=== PATIENT | female | born 1985 | race American Indian/Alaskan Native ===

== ENCOUNTER 2020-09-07 16:15 | Emergency (ER) | payer SELFPAY ==
[2020-09-07 16:27] VITALS: BP 152/83
[2020-09-07] MEDS ORDERED: IBUPROFEN 600 MG TAB PO ONE ×2 (18:01→18:02)
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
== END 2020-09-07 20:01 | disposition home or self-care (01) ==
LOC: ED 16:15
DX: S16.1XXA Strain of muscle, fascia and tendon at neck level, initial encounter (principal); S39.012A Strain of muscle, fascia and tendon of lower back, initial encounter; Z79.899 Other long term (current) drug therapy; V49.49XA Driver injured in collision with other motor vehicles in traffic accident, initial encounter; Y93.89 Activity, other specified; Y92.488 Other paved roadways as the place of occurrence of the external cause; Y99.8 Other external cause status
CPT/HCPCS: 72040; 72100; 99283

== ENCOUNTER 2020-09-12 08:32 | Emergency (ER) | payer SELFPAY ==
[2020-09-12 08:54] VITALS: BP 142/91
== END 2020-09-12 13:38 ==
LOC: ED 08:32
DX: M54.2 Cervicalgia (principal); Z53.21 Procedure and treatment not carried out due to patient leaving prior to being seen by health care provider

== ENCOUNTER 2021-07-05 16:26 | Emergency (ER) | payer SELFPAY ==
[2021-07-05] MEDS ORDERED: BUTALB/ACETAMINOPHEN/CAFFEINE TAB PO ONE (17:58)
[2021-07-05] MEDS ORDERED: cloNIDine 0.2 MG TAB PO ONE (17:58)
--- NOTE | 2021-07-05 18:14 | Emergency Department Report ---
ED General Adult HPI - General Chief complaint: High BP Stated complaint: HEAD HURTING, ELEVATED BP Time Seen by Provider: 07/05/21 17:53 Source: patient Mode of arrival: Ambulatory Limitations: No Limitations - History of Present Illness Initial comments: Patient is a 35-year-old female presents emergency room complaints of a headache and elevated blood pressure that exacerbated today. She states that the headache feels like a pressure. Patient was evaluated in the emergency department on 07/03/2021 and was found to have elevated blood pressure at that time and was advised to follow-up outpatient with primary care but not yet started on any antihypertensives. She states that she did not follow-up with her primary care doctor. She states her headache had resolved but then returned again today. She denies any vision changes, numbness, weakness, speech disturbance, gait disturbance, chest pain, shortness of breath, leg swelling, calf pain, cough. Patient had CT head on 07/03/2021 which was within normal limits, labs are stable, no kidney dysfunction, EKG was stable. She has a past medical history of preeclampsia during . She has not seen a primary care doctor in over a year. She has an allergy to penicillin. Last menstrual cycle 06/23/2021. she is a tobacco user. - Related Data Previous Rx's Medication Instructions Recorded Last Taken Type Benzonatate [Tessalon Perles] 100 mg PO Q8HR #30 capsule 01/28/20 Unknown Rx Ibuprofen [Motrin] 600 mg PO Q8H PRN #20 tablet 01/28/20 Unknown Rx Naproxen [EC-Naprosyn] 500 mg PO BID PRN #14 tablet. 09/07/20 Unknown Rx Butalb/Acetaminophen/Caffeine 1 cap PO Q8HR PRN #10 cap 07/05/21 Unknown Rx [Fioricet 50-300-40 mg CAP] amLODIPine 5 mg PO DAILY #30 tab 07/05/21 Unknown Rx hydroCHLOROthiazide [Hctz] 12.5 mg PO QDAY #30 capsule 07/05/21 Unknown Rx Allergies Allergy/AdvReac Type Severity Reaction Status Date / Time Penicillins Allergy Hives Verified 09/07/20 16:22 ED Review of Systems ROS: Stated complaint: HEAD HURTING, ELEVATED BP Other details as noted in HPI Comment: All other systems reviewed and negative ED Past Medical Hx - Past Medical History Previous Medical History?: Yes Additional medical history: Pre-eclampsia - Surgical History Past Surgical History?: No Additional Surgical History: x 3 - Social History Smoking Status: Current Every Day Smoker Substance Use Type: None - Medications Home Medications: Home Medications Medication Instructions Recorded Confirmed Last Taken Type Benzonatate [Tessalon Perles] 100 mg PO Q8HR #30 capsule 01/28/20 Unknown Rx Ibuprofen [Motrin] 600 mg PO Q8H PRN #20 tablet 01/28/20 Unknown Rx Naproxen [EC-Naprosyn] 500 mg PO BID PRN #14 tablet. 09/07/20 Unknown Rx Butalb/Acetaminophen/Caffeine 1 cap PO Q8HR PRN #10 cap 07/05/21 Unknown Rx [Fioricet 50-300-40 mg CAP] amLODIPine 5 mg PO DAILY #30 tab 07/05/21 Unknown Rx hydroCHLOROthiazide [Hctz] 12.5 mg PO QDAY #30 capsule 07/05/21 Unknown Rx ED Physical Exam - General Limitations: No Limitations General appearance: alert, in no apparent distress - Head Head exam: Present: atraumatic, normocephalic - Eye Eye exam: Present: normal appearance, PERRL, EOMI. Absent: periorbital swelling, periorbital tenderness - ENT ENT exam: Present: mucous membranes moist - Respiratory Respiratory exam: Present: normal lung sounds bilaterally. Absent: respiratory distress, wheezes, rales, rhonchi, stridor, chest wall tenderness, accessory muscle use, decreased breath sounds, prolonged expiratory - Cardiovascular Cardiovascular Exam: Present: regular rate, normal rhythm, normal heart sounds. Absent: systolic murmur, diastolic murmur, rubs, gallop - Neurological Exam Neurological exam: Present: alert, oriented X3, CN II-XII intact, normal gait. Absent: motor sensory deficit - Psychiatric Psychiatric exam: Present: normal affect, normal mood - Skin Skin exam: Present: warm, dry, intact ED Course Vital Signs 07/05/21 07/05/21 17:41 19:31 Temperature 98.2 F Pulse Rate 89 Respiratory 18 Rate Blood Pressure 190/102 Blood Pressure 134/83 [Right] O2 Sat by Pulse 97 Oximetry ED Medical Decision Making - Lab Data Vital Signs 07/05/21 07/05/21 17:41 19:31 Temperature 98.2 F Pulse Rate 89 Respiratory 18 Rate Blood Pressure 190/102 Blood Pressure 134/83 [Right] O2 Sat by Pulse 97 Oximetry - Medical Decision Making Patient is a 35-year-old female presents emergency room complaints of a headache and elevated blood pressure that exacerbated today. She states that the headac he feels like a pressure. Patient was evaluated in the emergency department on 07/03/2021 and was found to have elevated blood pressure at that time and was advised to follow-up outpatient with primary care but not yet started on any antihypertensives. She states that she did not follow-up with her primary care doctor. She states her headache had resolved but then returned again today. She denies any vision changes, numbness, weakness, speech disturbance, gait disturbance, chest pain, shortness of breath, leg swelling, calf pain, cough. Patient had CT head on 07/03/2021 which was within normal limits, labs are stable, no kidney dysfunction, EKG was stable. She has a past medical history of preeclampsia during . She has not seen a primary care doctor in over a year. She has an allergy to penicillin. Last menstrual cycle 06/23/2021. she is a tobacco user. Initial vitals with elevated blood pressure, patient given clonidine with improvement of blood pressure. Patient has no focal neuro deficits on exam. Patient had extensive work-up 2 days ago in the emergency room. Given that this is patient's second visit for elevated blood pressure reading, will start patient on blood pressure medication. Patient started on amlodipine and hydrochlorothiazide low-dose. Patient also given prescription for Fioricet. On reexamination patient's headache has significantly improved. Discussed lifestyle modifications and smoking cessation with patient. Advised patient Please take medication as prescribed. Increase your water intake. Eat a low-sodium diet. Incorporate 3060 minutes of daily exercise. Please stop smoking. Follow-up with your primary care doctor. Please keep a blood pressure log and take this to the primary care doctor. Return to emergency room for any new or worsening symptoms. Critical care attestation.: If time is entered above; I have spent that time in minutes in the direct care of this critically ill patient, excluding procedure time. ED Disposition Clinical Impression: Hypertensive urgency, Tobacco abuse Headache Qualifiers: Headache type: unspecified Headache chronicity pattern: acute headache Intractability: not intractable Qualified Code(s): R51.9 - Headache, unspecified Disposition: 01 HOME / SELF CARE / HOMELESS Is pt being admited?: No Does the pt Need Aspirin: No Condition: Stable Instructions: Low-Sodium Eating Plan, Managing Your Hypertension, Steps to Quit Smoking Additional Instructions: Please take medication as prescribed. Increase your water intake. Eat a low- sodium diet. Incorporate 3060 minutes of daily exercise. Please stop smoking. Follow-up with your primary care doctor. Please keep a blood pressure log and take this to the primary care doctor. Return to emergency room for any new or worsening symptoms. Prescriptions: amLODIPine 5 mg PO DAILY #30 tab Butalb/Acetaminophen/Caffeine [Fioricet 50-300-40 mg CAP] 1 cap PO Q8HR PRN #10 cap PRN Reason: headache hydroCHLOROthiazide [Hctz] 12.5 mg PO QDAY #30 capsule Referrals: FLORENCE HENSON MD [Staff Physician] - 3-5 Days [facility] [Provider Group] - 3-5 Days CHRISTINA LARSEN MD [Staff Physician] - 3-5 Days Forms: Work/School Release Form(ED) Time of Disposition: 19:33 Print Language: TAJIK
[2021-07-05 19:32] VITALS: BP 134/83
== END 2021-07-05 20:03 | disposition home or self-care (01) ==
LOC: ED 16:26
DX: I16.0 Hypertensive urgency (principal); R51.9 Headache, unspecified; F17.200 Nicotine dependence, unspecified, uncomplicated; Z98.890 Other specified postprocedural states; Z79.899 Other long term (current) drug therapy; Z88.0 Allergy status to penicillin
CPT/HCPCS: 99282

== ENCOUNTER 2021-09-17 14:11 | Emergency (ER) | payer SELFPAY ==
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
[2021-09-17 17:59] VITALS: BP 154/95
== END 2021-09-17 17:58 | disposition home or self-care (01) ==
LOC: ED 14:11
DX: M54.2 Cervicalgia (principal); R51.9 Headache, unspecified; M54.50 Low back pain, unspecified; F17.200 Nicotine dependence, unspecified, uncomplicated; Z98.890 Other specified postprocedural states; V87.7XXA Person injured in collision between other specified motor vehicles (traffic), initial encounter; Y93.89 Activity, other specified; Y92.488 Other paved roadways as the place of occurrence of the external cause; Y99.8 Other external cause status
CPT/HCPCS: 99282